=== PATIENT | female | born 1975 | race Caucasian/White ===

== ENCOUNTER → 2024-10-18 | Emergency (ER) | payer BC ==
[~2024-10-18] VITALS: Ht 160 cm; Wt 83.5 kg
[~2024-10-18] MED LIST: PHEN-704 PO
[2024-10-18 10:37] VITALS: BP 128/94; TEMP 98.3
[2024-10-18 11:02] VITALS: O2SAT 99
== END ==
LOC: ER 10:27
DX: N39.0 Urinary tract infection, site not specified (principal); I10 Essential (primary) hypertension; E78.5 Hyperlipidemia, unspecified; K21.9 Gastro-esophageal reflux disease without esophagitis; Z79.2 Long term (current) use of antibiotics; Z88.5 Allergy status to narcotic agent; Z88.8 Allergy status to other drugs, medicaments and biological substances